=== PATIENT | female | born 1975 | race Caucasian/White ===

== ENCOUNTER → 2021-01-17 | Outpatient (CLI) | payer BC, OTHER ==
[~2021-01-17] MED LIST: FLUOXETINE PO; HYDROCODON-ACE1 EAC6 PO; IBUPROFEN600 MG PO; LEVOTHYROXINE125 MC1 PO; LIOTHYRONINE SO5 MCG PO; PROTONIX 40 MG40 M1 PO; PROTONIX40 MG PO; VIT D PO
[2021-01-17 11:39] LABS: HEMOGLOBIN 9.8 gm/dl (12.3-15.3); RED BLOOD COUNT 5.22 M/UL (4.00-5.10)
== END ==
LOC: OPSV2 10:30
PROVIDERS: Obstetrics & Gynecology
DX: Z01.812 Encounter for preprocedural laboratory examination (principal); N93.9 Abnormal uterine and vaginal bleeding, unspecified
CPT/HCPCS: 36415; 81001; 85025

== ENCOUNTER → 2021-01-20 | Day surgery (SDC) | payer BC, OTHER | END | disposition home or self-care (01) | LOC: OR 07:03 | DX: N92.0 Excessive and frequent menstruation with regular cycle (principal); N94.6 Dysmenorrhea, unspecified; E89.0 Postprocedural hypothyroidism; Z88.8 Allergy status to other drugs, medicaments and biological substances; Z82.49 Family history of ischemic heart disease and other diseases of the circulatory system; Z80.3 Family history of malignant neoplasm of breast; Z83.3 Family history of diabetes mellitus | CPT/HCPCS: 84703; J1100; J1885; J2001; J2250; J2405; J2704; J2795; J3010; J7030; J7120 ==